=== PATIENT | female | born 1995 | race Caucasian/White ===

== ENCOUNTER 2017-11-13 18:38 | Emergency (ER) | payer OTHER | END 2017-11-14 01:48 | disposition home or self-care (01) | LOC: M ED 11-14 01:48 | DX: T76.11XA Adult physical abuse, suspected, initial encounter (principal); T76.21XA Adult sexual abuse, suspected, initial encounter; Y92.9 Unspecified place or not applicable; Y93.9 Activity, unspecified | CPT/HCPCS: 99284 ==

== ENCOUNTER → 2018-05-18 | Outpatient (REF) | payer OTHER | LOC: M SFHCLERA 20:02 | PROVIDERS: ATTEND Nurse Practitioner Family | DX: J02.9 Acute pharyngitis, unspecified (principal) ==

== ENCOUNTER → 2018-05-18 | Outpatient (CLI) | payer OTHER ==
--- NOTE | 2018-05-18 20:42 | REP ---
Clinical: Chest pain . Comparison: None . Technique: PA and lateral. Findings: The mediastinum and cardiac silhouette are normal. The lung lehman are clear and without acute consolidation, effusion, or pneumothorax. The skeletal structures are intact and normal. Impression: 1. No acute cardiopulmonary process. Electronically Signed by Tony Flores MD 05/18/2018 08:34 P
== END ==
LOC: M LRY 20:09
PROVIDERS: ATTEND Nurse Practitioner Family
DX: M94.0 Chondrocostal junction syndrome [Tietze] (principal)

== ENCOUNTER 2018-09-06 18:25 | Emergency (ER) | payer OTHER, SELFPAY ==
[~2018-09-06] VITALS: Ht 167.6 cm; Wt 108.2 kg
[2018-09-06] MEDS ORDERED: METF500T13 PO (21:05)
[2018-09-06] MEDS ORDERED: BUSP5TA PO (21:05)
[2018-09-06] MEDS ORDERED: ALBUTEROL SULFATE 2.5 MG/0.5 ML INH NEB SOLN NEB ONE (22:15)
[2018-09-06] MEDS ORDERED: BENZONATATE 100 MG CAP PO ONE (22:15)
[2018-09-06 22:43] LABS: BASO % 0.3 % (0.0-1.0); EOS # 0.1 10^3/uL (0.0-0.50); HEMATOCRIT 40.5 % (36.0-47.0); HEMOGLOBIN 14.1 g/dl (12.0-15.5); LYMPH # 3.3 10^3/uL (1.5-6.5); LYMPH % 47.2 % (24.0-44.0); MEAN CORPUSCULAR HEMOGLOBIN 29.6 pg (27.0-33.0); MEAN CORPUSCULAR HGB CONC 34.8 g/dl (32.0-36.5); MEAN CORPUSCULAR VOLUME 85.1 fl (80.0-96.0); MONO # 0.4 10^3/uL (0.0-0.8); MONO % 5.5 % (0.0-5.0); NEUTROPHILS # 3.1 10^3/uL (1.8-7.7); NEUTROPHILS % 45.4 % (36.0-66.0); PLATELET COUNT, AUTOMATED 202 10^3/uL (150-450); RED BLOOD COUNT 4.76 10^6/uL (4.00-5.40); WHITE BLOOD COUNT 6.9 10^3/uL (4.0-10.0)
[2018-09-06 23:02] LABS: BLOOD UREA NITROGEN 11 MG/DL (7-18); CALCIUM LEVEL 8.7 MG/DL (8.5-10.1); CARBON DIOXIDE LEVEL 29 MEQ/L (21-32); CHLORIDE LEVEL 106 MEQ/L (98-107); CREATININE FOR GFR 0.72 MG/DL (0.55-1.30); GLOMERULAR FILTRATION RATE > 60.0 (>60); GLUCOSE, FASTING 90 MG/DL (70-100); SODIUM LEVEL 141 MEQ/L (136-145)
[2018-09-06 23:16] LABS: MONO REFLEX EBV COMP NEGATIVE (NEGATIVE)
[2018-09-07] MEDS ORDERED: GUAI1SOL7 PO (00:30)
[2018-09-07] MEDS ORDERED: PENI500T PO (00:30)
[2018-09-07 00:35] VITALS: BP 124/77
--- NOTE | 2018-09-07 08:00 | REP ---
PA and lateral chest: Comparison is 05/18/2018. The lung lehman are clear. The cardiac size is normal. The jennifer, mediastinum, and skeletal structures are unremarkable. Impression: Negative PA and lateral chest. There is no interval change. Electronically Signed by Min Barrow MD 09/07/2018 07:52 A
[2018-09-09 00:08] LABS: EBV AB TO NUCLEAR ANTIGEN <18.0 U/mL (0.0-17.9); EBV VIRAL CAPSID AG IgG <18.0 U/mL (0.0-17.9); EBV VIRAL CAPSID AG IgM <36.0 U/mL (0.0-35.9)
== END 2018-09-07 00:42 | disposition home or self-care (01) ==
LOC: M ED 18:25
DX: J03.90 Acute tonsillitis, unspecified (principal); J40 Bronchitis, not specified as acute or chronic; E28.2 Polycystic ovarian syndrome; F33.9 Major depressive disorder, recurrent, unspecified; F41.9 Anxiety disorder, unspecified; Z79.899 Other long term (current) drug therapy

== ENCOUNTER 2019-10-04 18:25 | Emergency (ER) | payer OTHER, SELFPAY ==
[~2019-10-04 18:25] MED LIST: BUSP5TA PO; GUAI1SOL7 PO; METF500T13 PO; PENI500T PO
== END 2019-10-04 20:17 | disposition home or self-care (01) ==
LOC: M ED 18:25
DX: S20.211A Contusion of right front wall of thorax, initial encounter (principal); V49.40XA Driver injured in collision with unspecified motor vehicles in traffic accident, initial encounter; E28.2 Polycystic ovarian syndrome

== ENCOUNTER 2023-05-24 07:23 | Emergency (ER) | payer OTHER, SELFPAY ==
[~2023-05-24] VITALS: Ht 167.6 cm; Wt 107.2 kg
[2023-05-24] MEDS ORDERED: PENI500T PO (08:26)
[2023-05-24 08:33] VITALS: BP 144/81; TEMP 98.1; O2SAT 97
[2023-05-24] MEDS: PENICILLIN V POTASSIUM 500 MG TAB PO ONE (08:40)
== END 2023-05-24 08:44 | disposition home or self-care (01) ==
LOC: M ED 07:23
DX: J02.9 Acute pharyngitis, unspecified (principal); Z79.899 Other long term (current) drug therapy

== ENCOUNTER 2024-03-06 11:16 | Emergency (ER) | payer SELFPAY ==
[~2024-03-06] VITALS: Ht 167.6 cm; Wt 85.2 kg
[2024-03-06] MEDS: IPRATROPIUM 0.5MG/ALBUTEROL 2.5MG INH SOL UD 3ML (DUONEB) NEB ONE (14:20)
[2024-03-06 14:32] VITALS: BP 106/58; TEMP 98; O2SAT 97
[2024-03-06] MEDS ORDERED: VENTAER INH (14:48)
== END 2024-03-06 14:56 | disposition home or self-care (01) ==
LOC: M ED 11:16
DX: J20.9 Acute bronchitis, unspecified (principal); E28.2 Polycystic ovarian syndrome; F12.10 Cannabis abuse, uncomplicated; Z79.52 Long term (current) use of systemic steroids

== ENCOUNTER 2024-04-20 09:44 | Emergency (ER) | payer SELFPAY ==
[~2024-04-20] VITALS: Ht 165.1 cm; Wt 83.8 kg
[~2024-04-20 09:44] MED LIST changes: +VENTAER INH
[2024-04-20 11:04] LABS: BASO % 0.3 % (0.0-1.0); EOS # 0.1 10^3/uL (0.0-0.5); EOS % 0.5 % (0.0-3.0); HEMOGLOBIN 13.4 g/dl (12.0-15.5); LYMPH % 24.7 % (24.0-44.0); MEAN CORPUSCULAR HEMOGLOBIN 29.8 pg (27.0-33.0); MEAN CORPUSCULAR HGB CONC 33.5 g/dl (32.0-36.5); MEAN CORPUSCULAR VOLUME 88.9 fl (80.0-96.0); MONO # 0.6 10^3/uL (0.0-0.8); MONO % 4.8 % (2.0-8.0); NEUTROPHILS # 8.3 10^3/uL (1.5-8.5); NEUTROPHILS % 69.4 % (36.0-66.0); PLATELET COUNT, AUTOMATED 239 10^3/uL (150-450)
[2024-04-20 11:19] LABS: KETONE, URINE AUTO RFX NEGATIVE (NEGATIVE); LEUKOCYTE ESTERASE UR AUTO RFX NEGATIVE (NEGATIVE); NITRITE, URINE AUTO RFX NEGATIVE (NEGATIVE); RBC, URINE AUTO RFX 0 /HPF (0-3); SQUAM EPITHELIAL CELL UR AURFX 1 /HPF (0-6); WBC, URINE AUTO RFX 0 /HPF (0-3)
[2024-04-20 11:35] LABS: LIPASE 30 U/L (12-53)
[2024-04-20 11:38] LABS: ALBUMIN 3.4 G/DL (3.2-5.2); ALKALINE PHOSPHATASE 73 U/L (35-104); ALT/SGPT 15 U/L (7.0-40); AST/SGOT 18 U/L (<34); BILIRUBIN,DIRECT 0.2 MG/DL (<0.4); BILIRUBIN,TOTAL 0.4 MG/DL (0.3-1.2); BLOOD UREA NITROGEN 6 MG/DL (9-23); CALCIUM LEVEL 8.5 MG/DL (8.5-10.1); CARBON DIOXIDE LEVEL 26 MMOL/L (20-31); CHLORIDE LEVEL 107 MMOL/L (98-107); GLOMERULAR FILTRATION RATE > 60.0 (>60); GLUCOSE, FASTING 91 MG/DL (60-100); POTASSIUM SERUM 4.4 MMOL/L (3.5-5.1); SODIUM LEVEL 139 MMOL/L (136-145)
[2024-04-20 12:01] LABS: HCG, SERUM QUANTITATIVE 102295.4 MIU/ML (<4.2)
[2024-04-20 13:12] VITALS: BP 110/70; TEMP 98.3; O2SAT 99
[2024-04-20 14:04] LABS: Trichomonas vaginalis (AMP) NOT DETECTED (NEGATIVE)
[2024-04-20 14:28] LABS: GC DNA AMPLIFICATION NEGATIVE (NEGATIVE)
== END 2024-04-20 13:13 | disposition home or self-care (01) ==
LOC: M ED 09:44
DX: O20.8 Other hemorrhage in early pregnancy (principal); Z3A.01 Less than 8 weeks gestation of pregnancy

== ENCOUNTER → 2024-05-13 | Outpatient (CLI) | payer MEDICAID ==
[2024-05-13 17:19] LABS: HEMATOCRIT 40.4 % (36.0-47.0); MEAN CORPUSCULAR HEMOGLOBIN 29.7 pg (27.0-33.0); MEAN CORPUSCULAR HGB CONC 34.7 g/dl (32.0-36.5); MEAN CORPUSCULAR VOLUME 85.8 fl (80.0-96.0); PLATELET COUNT, AUTOMATED 226 10^3/uL (150-450); RED BLOOD COUNT 4.71 10^6/uL (4.00-5.40); WHITE BLOOD COUNT 7.6 10^3/uL (4.0-10.0)
[2024-05-13 18:08] LABS: Trichomonas vaginalis (AMP) NOT DETECTED (NEGATIVE)
[2024-05-13 18:24] LABS: HIV 1&2 SCREEN NEGATIVE (NEGATIVE)
[2024-05-13 18:33] LABS: HEPATITIS C VIRUS ABY INDEX 0.08 INDEX (<0.8)
[2024-05-13 18:35] LABS: GC DNA AMPLIFICATION NEGATIVE (NEGATIVE)
== END ==
LOC: M PLALAB 15:07
PROVIDERS: ATTEND Advanced Practice Midwife
DX: Z34.80 Encounter for supervision of other normal pregnancy, unspecified trimester (principal)

== ENCOUNTER → 2024-05-13 | Outpatient (REF) | payer OTHER | LOC: M PLALAB 14:55 | PROVIDERS: ATTEND Advanced Practice Midwife | DX: Z53.9 Procedure and treatment not carried out, unspecified reason (principal) ==

== ENCOUNTER → 2024-06-08 | Outpatient (REF) | payer MEDICAID, OTHER | LOC: M SFHCWAGY 14:49 | PROVIDERS: ATTEND Advanced Practice Midwife | DX: Z34.02 Encounter for supervision of normal first pregnancy, second trimester (principal) ==

== ENCOUNTER → 2024-07-05 | Outpatient (CLI) | payer OTHER | LOC: M WHC 09:53 | PROVIDERS: ATTEND Advanced Practice Midwife | DX: Z34.02 Encounter for supervision of normal first pregnancy, second trimester (principal); Z3A.19 19 weeks gestation of pregnancy ==

== ENCOUNTER → 2024-08-29 | Outpatient (CLI) | payer OTHER | LOC: M WHC 09:01 | PROVIDERS: ATTEND Advanced Practice Midwife | DX: Z34.02 Encounter for supervision of normal first pregnancy, second trimester (principal); Z3A.27 27 weeks gestation of pregnancy ==

== ENCOUNTER → 2024-09-16 | Outpatient (CLI) | payer OTHER ==
[~2024-09-16] MED LIST changes: +PRENTAB9 PO
[2024-09-16 17:11] LABS: GLUCOSE CHALLENGE TEST 1 HOUR 144 MG/DL (LESS THAN 140)
[2024-09-16 17:41] LABS: HIV 1&2 SCREEN NEGATIVE (NEGATIVE)
[2024-09-16 17:49] LABS: HEPATITIS C VIRUS ABY INDEX < 0.02 INDEX (<0.8)
[2024-09-16 17:56] LABS: PLATELET COUNT, AUTOMATED 229 10^3/uL (150-450)
[2024-09-16 19:02] LABS: Trichomonas vaginalis (AMP) NOT DETECTED (NEGATIVE)
[2024-09-16 19:25] LABS: GC DNA AMPLIFICATION NEGATIVE (NEGATIVE)
== END ==
LOC: M PLALAB 13:38
PROVIDERS: ATTEND Advanced Practice Midwife
DX: Z34.02 Encounter for supervision of normal first pregnancy, second trimester (principal)

== ENCOUNTER → 2024-10-10 | Outpatient (CLI) | payer OTHER ==
[~2024-10-10] MED LIST changes: -PRENTAB9 PO
== END ==
LOC: M WHC 07:36
PROVIDERS: ATTEND Obstetrics & Gynecology
DX: Z34.83 Encounter for supervision of other normal pregnancy, third trimester (principal); Z3A.33 33 weeks gestation of pregnancy

== ENCOUNTER → 2024-11-01 | Outpatient (REF) | payer OTHER | LOC: M PLALAB 15:26 | PROVIDERS: ATTEND Advanced Practice Midwife | DX: Z36.85 Encounter for antenatal screening for Streptococcus B (principal); Z3A.36 36 weeks gestation of pregnancy ==

== ENCOUNTER → 2024-11-26 | Outpatient (REF) | payer OTHER | LOC: M LAB REF 17:01 | DX: J02.9 Acute pharyngitis, unspecified (principal); B34.9 Viral infection, unspecified ==

== ENCOUNTER 2024-12-01 12:15 | Inpatient (IN) | payer OTHER ==
[~2024-12-01] VITALS: Ht 167.6 cm; Wt 108.8 kg
[2024-12-01] VITALS (15 sets, daily range): BP systolic 108–146; BP diastolic 60–89
[2024-12-01] MEDS ORDERED: PRENTAB9 PO (12:32)
[2024-12-01] MEDS ORDERED: OXYTOCIN DRIP 30 UNITS in IV 1 EA IV PRN (14:30)
[2024-12-01 15:39] LABS: PLATELET COUNT, AUTOMATED 234 10^3/uL (150-450)
[2024-12-01 16:32] LABS: HIV 1&2 SCREEN NEGATIVE (NEGATIVE)
[2024-12-01 16:40] LABS: HEPATITIS C VIRUS ABY INDEX 0.05 INDEX (<0.8)
[2024-12-01] MEDS: OXYTOCIN DRIP 30 UNITS in IV 1 EA IV SCH (19:31)
[2024-12-01] MEDS: LR 1,000 ML IV SCH (19:31)
[2024-12-02] VITALS (23 sets, daily range): BP systolic 118–165; BP diastolic 55–93; O2SAT 96–97
[2024-12-02] MEDS ORDERED: EPIDURAL/PCA KEYS XX PRN (00:20)
[2024-12-02] MEDS ORDERED: LR 500 ML IV PRN (00:20)
[2024-12-02] MEDS ORDERED: diphenhydrAMINE 50 MG/ML VIAL IV PRN (00:20)
[2024-12-02] MEDS ORDERED: NALOXONE INJ 0.4 MG/1 ML VIAL IV PRN (00:20)
[2024-12-02] MEDS ORDERED: ONDANSETRON 4MG 2ML VIAL IV PRN (00:20)
[2024-12-02] MEDS ORDERED: FENTANYL 2 MCG/ML ROPIVACAINE 0.2% IN 0.9% NACL 100 ML IVBAG As Ordered ONE (00:21)
[2024-12-02] MEDS: FENTANYL/ROPIVACAINE/NACL BAG 100 ML EPIDURAL SCH (00:23)
[2024-12-02 02:33] LABS: CORD GAS ABE A -4.0; CORD GAS ABE V -3.4; CORD GAS HCO3 A 22.3 MMOL/L; CORD GAS HCO3 V 23.1 MMOL/L; CORD GAS O2 SAT A 75.3 %; CORD GAS O2 SAT V 73.5 %; CORD GAS PCO2 A 45.4 mmHg; CORD GAS PCO2 V 46.8 mmHg; CORD GAS PH A 7.31 UNITS; CORD GAS PH V 7.311 UNITS; CORD GAS PO2 A 35.3 mmHg; CORD GAS PO2 V 34.0 mmHg; CORD GAS SBC A 20.6 MMOL/L; CORD GAS SBC V 21.0 MMOL/L; CORD GAS TCO2 A 23.7 MMOL/L; CORD GAS TCO2 V 24.5 MMOL/L
[2024-12-02] MEDS: LIDOCAINE 1% MDV 20 ML VIAL INFIL PRN (02:37)
[2024-12-02] MEDS ORDERED: IBUPROFEN 600 MG TAB PO PRN (03:25)
[2024-12-02] MEDS ORDERED: ACETAMINOPHEN 500 MG TAB PO PRN (03:25)
[2024-12-02] MEDS ORDERED: DOCUSATE SODIUM 100 MG CAPSULE PO PRN (03:25)
[2024-12-02] MEDS ORDERED: ACETAMINOPHEN 325 MG TAB PO PRN (03:25)
[2024-12-02] MEDS ORDERED: IBUPROFEN 800 MG TAB PO PRN (03:25)
[2024-12-02] MEDS ORDERED: METHYLERGONOVINE MALEATE 0.2 MG TAB PO PRN (03:25)
[2024-12-02] MEDS ORDERED: RHOGAM 300MCG (1500IU) INJ IM SCH (03:25)
[2024-12-02] MEDS: PRENATAL VITAMINS CHEWABLE TABLET PO SCH (09:31)
[2024-12-02] MEDS: DIBUCAINE 1% OINTMENT 30 GM TOP PRN (09:32)
[2024-12-03 05:56] VITALS: BP 114/62; O2SAT 97
[2024-12-03 10:15] LABS: PLATELET COUNT, AUTOMATED 214 10^3/uL (150-450)
[2024-12-03 10:30] LABS: ALT/SGPT 11 U/L (7.0-40); AST/SGOT 30 U/L (<34); CALCIUM LEVEL 8.1 MG/DL (8.5-10.1); CARBON DIOXIDE LEVEL 23 MMOL/L (20-31); CHLORIDE LEVEL 105 MMOL/L (98-107); CREATININE FOR GFR 0.55 MG/DL (0.55-1.30); GLOMERULAR FILTRATION RATE > 90.0 (>60); POTASSIUM SERUM 3.5 MMOL/L (3.5-5.1); SODIUM LEVEL 140 MMOL/L (136-145)
[2024-12-03 18:00] VITALS: BP 130/88; O2SAT 96
[2024-12-04 06:00] VITALS: BP 128/80; O2SAT 98
[2024-12-04 08:50] VITALS: BP 128/80; TEMP 96.9; O2SAT 98
[2024-12-04] MEDS ORDERED: MEASLES,MUMPS,RUBELLA VACCINE INJ (MMR-II) SC.IMMUN ONE (09:00)
== END 2024-12-04 13:37 | disposition home or self-care (01) | DRG 560 ==
LOC: M LDO 12:15 → M LDI 14:25 → M OBS 12-02 04:30
PROVIDERS: ADMIT Specialist; ATTEND Specialist
PROC: 10E0XZZ Delivery of Products of Conception, External Approach (ICD-10-PCS; principal; 2024-12-02)
PROC: 0HQ9XZZ Repair Perineum Skin, External Approach (ICD-10-PCS; 2024-12-02)
DX: O70.0 First degree perineal laceration during delivery (principal); Z37.0 Single live birth; Z3A.40 40 weeks gestation of pregnancy

== ENCOUNTER 2025-01-15 19:46 | Emergency (ER) | payer OTHER ==
[~2025-01-15] VITALS: Ht 165.1 cm; Wt 94.1 kg
[~2025-01-15 19:46] MED LIST changes: +PRENTAB9 PO
[2025-01-15 19:49] VITALS: TEMP 99
[2025-01-15 21:13] LABS: KETONE, URINE AUTO RFX NEGATIVE (NEGATIVE); LEUKOCYTE ESTERASE UR AUTO RFX 2+ (NEGATIVE); MUCUS, URINE RFX MODERATE (NEGATIVE); NITRITE, URINE AUTO RFX NEGATIVE (NEGATIVE); RBC, URINE AUTO RFX 3 /HPF (0-3); SQUAM EPITHELIAL CELL UR AURFX 15 /HPF (0-6); WBC, URINE AUTO RFX 46 /HPF (0-3)
[2025-01-15 21:19] LABS: BASO # 0.0 10^3/uL (0.0-0.2); BASO % 0.4 % (0.0-1.0); EOS # 0.1 10^3/uL (0.0-0.5); EOS % 1.1 % (0.0-3.0); LYMPH # 2.5 10^3/uL (1.5-5.0); LYMPH % 34.2 % (24.0-44.0); MONO # 0.6 10^3/uL (0.0-0.8); MONO % 7.7 % (2.0-8.0); NEUTROPHILS # 4.1 10^3/uL (1.5-8.5); NEUTROPHILS % 56.5 % (36.0-66.0); PLATELET COUNT, AUTOMATED 313 10^3/uL (150-450)
[2025-01-15 21:32] LABS: CALCIUM LEVEL 8.9 MG/DL (8.5-10.1); CARBON DIOXIDE LEVEL 25 MMOL/L (20-31); CHLORIDE LEVEL 108 MMOL/L (98-107); CREATININE FOR GFR 0.74 MG/DL (0.55-1.30); GLOMERULAR FILTRATION RATE > 90.0 (>60); MAGNESIUM LEVEL 1.8 MG/DL (1.8-2.4); POTASSIUM SERUM 3.6 MMOL/L (3.5-5.1); SODIUM LEVEL 145 MMOL/L (136-145)
[2025-01-15 21:41] LABS: AMPHETAMINES LEVEL URINE NEGATIVE (NEGATIVE); BARBITURATES URINE NEGATIVE (NEGATIVE); BENZODIAZEPINES URINE NEGATIVE (NEGATIVE); METHADONE URINE NEGATIVE (NEGATIVE); OPIATES URINE NEGATIVE (NEGATIVE); PHENCYCLIDINE URINE NEGATIVE (NEGATIVE)
[2025-01-15 21:44] LABS: HCG, SERUM QUALITATIVE NEGATIVE (NEGATIVE)
[2025-01-15 21:45] LABS: CANNABINOIDS URINE POSITIVE (NEGATIVE); COCAINE METABOLITE URINE POSITIVE (NEGATIVE)
[2025-01-15 23:30] VITALS: BP 119/71
[2025-01-15 23:31] VITALS: O2SAT 98
== END 2025-01-16 00:03 | disposition home or self-care (01) ==
LOC: M ED 19:46
DX: F19.10 Other psychoactive substance abuse, uncomplicated (principal); F17.200 Nicotine dependence, unspecified, uncomplicated; F12.10 Cannabis abuse, uncomplicated; Z79.899 Other long term (current) drug therapy